=== PATIENT | female | born 1970 | race Asian ===

== ENCOUNTER 2024-03-31 09:04 | Inpatient (IN) | payer BC ==
[~2024-03-31] VITALS: Ht 170.2 cm; Wt 79.4 kg
[2024-03-31 09:30] LABS: *BILIRUBIN,URIN NEGATIVE (NEGATIVE); *BLOOD, URINE NEGATIVE (NEGATIVE); *CLARITY,URINE CLEAR (CLEAR); *COLOR,URINE YELLOW (YELLOW); *KETONES,URINE NEGATIVE (NEGATIVE); *PROTEIN,URINE TRACE (NEGATIVE); *UROBILINOGEN,URINE 0.2 E.U./dl (NORMAL); LEUKOCYTE ESTERASE ,URINE NEGATIVE (NEGATIVE); NITRITE, URINE NEGATIVE (NEGATIVE); PH,URINE 5.5 (5.0-8.0); UGLUCOSE NEGATIVE (NEGATIVE)
[2024-03-31 09:33] LABS: *URINE HCG, QUAL NEGATIVE (NEGATIVE)
[2024-03-31] MEDS ORDERED: LOSA100T31 PO (09:35)
[2024-03-31] MEDS ORDERED: MONT10TA33 PO (09:35)
[2024-03-31] MEDS ORDERED: ONDANSETRON 4 MG/2 ML VIAL ONE (09:43)
[2024-03-31] MEDS ORDERED: HYDROMORPHONE 1 MG/1 ML DISP.SYRIN ONE ×3 (09:43→14:13)
[2024-03-31] MEDS: IV NORMAL SALINE 1000 ML BAG IV ONE (09:49)
[2024-03-31] MEDS: HYDROMORPHONE 1 MG/1 ML DISP.SYRIN IV ONE ×2 (09:50→12:09)
[2024-03-31] MEDS: ONDANSETRON 4 MG/2 ML VIAL IV ONE (09:50)
[2024-03-31 10:05] LABS: BASOPHILS % (AUTO) 0.3 % (0.0-2.0); EOSINOPHILS % (AUTO) 0.3 % (0.0-7.0); HEMATOCRIT 39.8 % (31.2-41.9); HEMOGLOBIN 13.1 g/dL (10.9-14.3); LYMPHOCYTES % (AUTO) 9.4 % (20.5-51.5); MEAN CORPUSCULAR HEMOGLOBIN 28.4 uug (24.7-32.8); MEAN CORPUSCULAR HGB CONC 33 g/dL (32.3-35.6); MEAN CORPUSCULAR VOLUME 86.6 fL (75.5-95.3); MONOCYTES # (AUTO) 0.7 K/uL (0.1-1.30); MONOCYTES % (AUTO) 6.3 % (0.0-11.0); NEUTROPHILS # (AUTO) 8.7 K/uL (1.8-8.9); NEUTROPHILS % (AUTO) 83.7 % (38.5-71.5); PLATELET COUNT (AUTO) 205 K/uL (179-408); RED CELL DISTRIBUTION WIDTH 13.2 % (12.3-17.7); WHITE BLOOD COUNT (AUTO) 10.4 K/uL (3.8-11.8)
[2024-03-31 10:06] LABS: CALCIUM 8.9 mg/dL (8.5-10.1); CREATININE 0.9 mg/dL (0.6-1.3); DIFFERENTIAL COMMENT 1; POTASSIUM 3.8 mmol/L (3.5-5.1)
[2024-03-31 10:12] LABS: ALBUMIN 3.8 g/dL (3.4-5.0); BILIRUBIN,DIRECT 0.1 mg/dL (0.0-0.2); BILIRUBIN,TOTAL 0.5 mg/dL (0.2-1.0); TOTAL PROTEIN, SERUM 7.7 g/dL (6.4-8.2)
--- NOTE | 2024-03-31 11:30 | NUR ---
Pt is resting in [facility] in ER RM5[facility], states she is pain free at this time. Per Dr. Weiss plan to admit to m/s for appendicitis, ER admitting notified. Dr. Weiss spoke with Dr. Gomez (surg on-call) via telephone. Inbox[employer] paged.
[2024-03-31] MEDS ORDERED: METRONIDAZOLE 500 MG/NS 100ML 100 ML IV ONE (11:38)
[2024-03-31] MEDS ORDERED: MEROPENEM 1GM/NS 100ML IVPB **ER PYXIS ONLY IV ONE ×2 (11:38→21:50)
--- NOTE | 2024-03-31 11:40 | NUR ---
Dr. Weiss spoke with the patient/ about plan of care.
--- NOTE | 2024-03-31 11:45 | NUR ---
Per m/s charge nurse "they are maxed out" and can not admit any new patients. Nursing ethylbenzene cracking supervisor is aware.
[2024-03-31] MEDS: METRONIDAZOLE 500 MG/NS 100 ML PIGGYBACK IV ONE (11:53)
[2024-03-31] MEDS: IV NS 1000 ML 1,000 ML IV ONE (12:00)
--- NOTE | 2024-03-31 12:30 | NUR ---
Dr. Weiss spoke with Dr. Olguin via telephone, pt has been accepted for m/s admission. Pt resting at this time with NAD noted, remains at bedside. Pt states her pain is improved (down to 2/10).
[2024-03-31] MEDS: MEROPENEM 1 G in IV NORMAL SALINE 100 ML IV SCH (12:39)
--- NOTE | 2024-03-31 13:06 | NUR ---
Received telephone call from Dr. Gomez, procedure scheduled for 1500 today. Pt consent for Laproscopic Appendectomy Possible Open obtained as requested by Dr. Gomez.
--- NOTE | 2024-03-31 14:00 | NUR ---
Pt oral temp 103.0, Dr. Weiss notified. SBAR report given to pre-op nurse via telephone.
[2024-03-31] MEDS: HYDROMORPHONE 1 MG/1 ML DISP.SYRIN IV PRN (14:12)
--- NOTE | 2024-03-31 14:20 | NUR ---
Pt trans to OR, hands off report given.
[2024-03-31] MEDS ORDERED: FENTANYL CITRATE 250 MCG/5 ML AMPUL ONE (14:40)
[2024-03-31] MEDS ORDERED: VASOPRESSIN 20 UNIT/ML VIAL ONE (14:40)
[2024-03-31] MEDS ORDERED: VALS320T16 PO (15:06)
[2024-03-31 15:19] LABS: BACTERIA,URINE FEW /HPF (NONE SEEN); RBC,URINE NONE SEEN /HPF (0-3); SQUAMOUS EPITHELIAL CELL,UR FEW /HPF (NONE SEEN); URINE AMORPHOUS URATE MANY /HPF; WBC,URINE 0-3 /HPF (0-3)
[2024-03-31] MEDS ORDERED: LIDOCAINE HCL 1% 20 ML VIAL ONE (15:54)
[2024-03-31] MEDS ORDERED: NEOMY/BACITRAC/POLYMI OINT 28.35 GM TUBE ONE (15:54)
[2024-03-31] MEDS ORDERED: BUPIVACAINE/EPI PF 0.25% 10 ML VIAL IJ ONE (15:54)
[2024-03-31] MEDS ORDERED: PROPOFOL 200 MG/20 ML BOTTLE ONE (16:45)
[2024-03-31] MEDS ORDERED: ONDANSETRON 4 MG/2 ML VIAL IV PRN (18:45)
[2024-03-31] MEDS ORDERED: ACETAMINOPHEN 650 MG SUPP.RECT RC PRN (18:45)
[2024-03-31 19:09] VITALS: BP 115/56; TEMP 102.1; O2SAT 99
--- NOTE | 2024-03-31 19:20 | NUR ---
patient is alert, oriented x4, no sob, respirations are even nonlabored, patient is running temp, dr cespedes made aware about patient temp, oncoming nurse martin endorsed accordingly to continue with plan of care.
--- NOTE | 2024-03-31 19:20 | NUR ---
Pt received in bed. Alert, oriented x4. She is in telemetry. Heart rate is sinus rhythm 92.No sob or pain acute reported. IV on L AC noting is running. Last temperature was 100.7. ice pack put. Pt is on ice chips.will start an IV and scheduled meds. Safety will monitored.
[2024-03-31] MEDS: GABAPENTIN 100 MG CAPSULE PO SCH (20:07)
[2024-03-31] MEDS: CELECOXIB 200 MG CAPSULE PO SCH (20:08)
[2024-03-31] MEDS: POTASSIUM CHLORIDE 20 MEQ in IV D5 1/2 NS 1000 ML 1,000 ML IV PRN (21:19)
[2024-03-31 21:57] VITALS: BP 128/61; TEMP 100.7; O2SAT 99
[2024-03-31] MEDS ORDERED: PIPERACILLIN SODIUM/TAZOBACTAM 3.375 G in IV DEXTROSE 5% 50 ML IV SCH (22:00)
[2024-03-31] MEDS: PIPERACILLIN SODIUM/TAZOBACTAM 3.375 G in IV DEXTROSE 5% 100 ML IV SCH (23:54)
[2024-04-01 01:00] VITALS: BP 99/54; TEMP 100.4; O2SAT 94
[2024-04-01] MEDS: ACETAMINOPHEN 325 MG TABLET PO PRN (01:30)
--- NOTE | 2024-04-01 05:19 | NUR ---
[id number] Pauline TRAFFIC ENUMERATOR made rounds and notify her that patient retaining urine, did bladder scan patient and result is more than 300 of urine, straight cath patient obtained 800cc of yellow color urine with slight odor, Pauline has new order UA and to do bladder scan patient every 8 hrs if not voiding, and to insert iqbal if more than 300 cc of urine. MARIAM Cox made aware.
[2024-04-01 05:51] VITALS: BP 98/55; TEMP 99.4; O2SAT 95
--- NOTE | 2024-04-01 07:02 | NUR ---
Pt had a little urine around 50 ml. after 8 hours per COKE CRUSHER OPERATOR order bladder scan was done. it was showing 605. Foely catheter was put. Urine sample was taken. MRSA swab was taken. Pt got all her scheduled meds, tolerated well. No temperature. All needs were attended. upcoming nurse endorsed.
[2024-04-01 07:37] LABS: BASOPHILS % (AUTO) 0.2 % (0.0-2.0); EOSINOPHILS % (AUTO) 0.1 % (0.0-7.0); HEMATOCRIT 33.1 % (31.2-41.9); HEMOGLOBIN 10.9 g/dL (10.9-14.3); LYMPHOCYTES # (AUTO) 1.3 K/uL (0.8-4.8); LYMPHOCYTES % (AUTO) 9.9 % (20.5-51.5); MEAN CORPUSCULAR HEMOGLOBIN 28.5 uug (24.7-32.8); MEAN CORPUSCULAR HGB CONC 33 g/dL (32.3-35.6); MEAN CORPUSCULAR VOLUME 86.5 fL (75.5-95.3); MONOCYTES # (AUTO) 0.9 K/uL (0.1-1.30); MONOCYTES % (AUTO) 6.4 % (0.0-11.0); NEUTROPHILS # (AUTO) 11.2 K/uL (1.8-8.9); NEUTROPHILS % (AUTO) 83.4 % (38.5-71.5); PLATELET COUNT (AUTO) 165 K/uL (179-408); RED BLOOD CELL COUNT(AUTO) 3.82 MIL/uL (3.63-4.92); RED CELL DISTRIBUTION WIDTH 13.8 % (12.3-17.7); WHITE BLOOD COUNT (AUTO) 13.4 K/uL (3.8-11.8)
[2024-04-01 07:38] LABS: ALANINE AMINOTRANSFERASE 18 U/L (14-59); ALBUMIN 2.7 g/dL (3.4-5.0); ALKALINE PHOSPHATASE 50 U/L (50-136); ASPARTATE AMINOTRANSFERASE 26 U/L (15-37); CALCIUM 7.9 mg/dL (8.5-10.1); CARBON DIOXIDE 29 mmol/L (21-32); CHLORIDE 105 mmol/L (98-107); GLUCOSE 127 mg/dL (74-106); NT-PRO BNP 808 pg/mL (0-125); PHOSPHOROUS 2.6 mg/dL (2.5-4.9); POTASSIUM 3.3 mmol/L (3.5-5.1); SODIUM SERUM 140 mmol/L (136-145); TOTAL PROTEIN, SERUM 6.4 g/dL (6.4-8.2); UREA NITROGEN, BLOOD 12 mg/dL (7-18)
--- NOTE | 2024-04-01 08:22 | NUR ---
PT RECEIVED IN BED. ALERT AND ORIENTED X4, WITH NO ACUTE DISTRESS NOTED. CONTINUE ON ROOM AIR. SATURATING BETWEEN 96-98%. DENIED SOB, COUGHING AND ABDOMINAL PAIN. ABDOMINAL INCISION INTACT. LEFT AC IV INTACT, PATENT AND FLUSHING WELL. . CALL LIGHT WITHIN REACH, BED AT ITS LOWEST POSITION, LOCKED AND ALARM ON. WILL CONTINUE TO MONITOR.
[2024-04-01 09:26] LABS: THYROID STIMULATING HORMONE 0.508 mIU/mL (0.358-3.740)
[2024-04-01] MEDS: PANTOPRAZOLE SODIUM 40 MG VIAL IV SCH (09:27)
[2024-04-01 11:54] VITALS: BP 96/54; TEMP 97.7; O2SAT 98
[2024-04-01] MEDS: POTASSIUM CHLORIDE 20 MEQ TAB.PRT.SR PO ONE (12:46)
[2024-04-01] MEDS: MAGNESIUM SULFATE/D5W 100 ML IV SCH (12:47)
[2024-04-01] MEDS: NEUTRA PHOS PACKET PO ONE (12:47)
[2024-04-01] MEDS ORDERED: SERT100T PO (13:18)
[2024-04-01] MEDS ORDERED: BUPR-96 PO (13:19)
[2024-04-01] MEDS ORDERED: GUAN4TAB2 PO (13:20)
[2024-04-01] MEDS ORDERED: ALBUTEROL SULFATE 2.5 MG/ 0.5 ML NEBU NEB PRN (15:30)
[2024-04-01] MEDS ORDERED: TEMAZEPAM 15 MG CAPSULE PO PRN (15:45)
[2024-04-01 16:06] VITALS: BP 141/80; TEMP 98.3; O2SAT 97
[2024-04-01 16:15] VITALS: O2SAT 97
[2024-04-01] MEDS: MORPHINE SULFATE 2 MG/1 ML DISP.SYRIN IV PRN (17:47)
[2024-04-01] MEDS: REMDESIVIR (CHARGED) 200 MG in IV NORMAL SALINE 210 ML IV ONE (17:51)
[2024-04-01] MEDS: DEXAMETHASONE 4 MG TABLET PO SCH (17:52)
--- NOTE | 2024-04-01 19:21 | NUR ---
PT RECEIVED IN BED. ALERT AND ORIENTED X4, WITH NO ACUTE DISTRESS NOTED. CONTINUE ON ROOM AIR. SATURATING BETWEEN 96-98%. DENIED SOB, COUGHING AND ABDOMINAL PAIN. ABDOMINAL INCISION INTACT. LEFT AC IV INTACT, PATENT AND FLUSHING WELL. . CALL LIGHT WITHIN REACH, BED AT ITS LOWEST POSITION, LOCKED AND ALARM ON. WILL CONTINUE TO MONITOR. Addendum: 04/01/24 at 1928 by LIEN DYKES RN PATIENT IN BED. ALERT AND ORIENTED X4, WITH NO ACUTE DISTRESS NOTED. CONTINUE ON ROOM AIR. SATURATING BETWEEN 96-98%. DENIED SOB, COUGHING. MORPHINE GIVEN FOR ABDOMINAL PAIN. ABDOMINAL INCISION INTACT. LEFT AC IV INTACT, PATENT AND FLUSHING WELL. STARTED ON REMDESIVIR IV AND DECADRON FOR COVID 19. CALL LIGHT WITHIN REACH, BED AT ITS LOWEST POSITION, LOCKED AND ALARM ON. WILL CONTINUE TO MONITOR.
[2024-04-01 20:42] VITALS: BP 122/77; TEMP 100.4; O2SAT 96
[2024-04-01] MEDS: ENOXAPARIN SODIUM 40 MG/0.4 ML DISP.SYRIN SQ SCH (21:31)
[2024-04-01] MEDS: MIRALAX 17 GM POWD.PACK PO PRN (22:53)
[2024-04-02 00:39] VITALS: BP 147/86; TEMP 99; O2SAT 94
[2024-04-02 03:49] VITALS: O2SAT 98
[2024-04-02] MEDS: PANTOPRAZOLE SODIUM 40 MG TABLET.DR PO SCH (06:11)
[2024-04-02 06:13] VITALS: BP 130/70; TEMP 97.7; O2SAT 99
[2024-04-02 07:05] LABS: HEMATOCRIT 34.5 % (31.2-41.9); HEMOGLOBIN 11.2 g/dL (10.9-14.3); LYMPHOCYTES # (AUTO) 0.8 K/uL (0.8-4.8); LYMPHOCYTES % (AUTO) 5.8 % (20.5-51.5); MEAN CORPUSCULAR HEMOGLOBIN 27.9 uug (24.7-32.8); MEAN CORPUSCULAR HGB CONC 32 g/dL (32.3-35.6); MONOCYTES # (AUTO) 0.6 K/uL (0.1-1.30); NEUTROPHILS # (AUTO) 12.8 K/uL (1.8-8.9); NEUTROPHILS % (AUTO) 90.2 % (38.5-71.5); PLATELET COUNT (AUTO) 169 K/uL (179-408); RED BLOOD CELL COUNT(AUTO) 4.01 MIL/uL (3.63-4.92); RED CELL DISTRIBUTION WIDTH 13.8 % (12.3-17.7); WHITE BLOOD COUNT (AUTO) 14.2 K/uL (3.8-11.8)
[2024-04-02 07:12] LABS: DIFFERENTIAL COMMENT 1
[2024-04-02 07:40] LABS: ALBUMIN 2.7 g/dL (3.4-5.0); BILIRUBIN,DIRECT 0.1 mg/dL (0.0-0.2); BILIRUBIN,TOTAL 0.6 mg/dL (0.2-1.0); CALCIUM 8.4 mg/dL (8.5-10.1); CREATININE 0.7 mg/dL (0.6-1.3); MAGNESIUM 2.4 mg/dL (1.8-2.4); PHOSPHOROUS 1.9 mg/dL (2.5-4.9); TOTAL PROTEIN, SERUM 6.9 g/dL (6.4-8.2)
[2024-04-02 08:00] VITALS: BP 147/88; TEMP 97.9; O2SAT 97
--- NOTE | 2024-04-02 08:30 | NUR ---
PT AWAKE, ALERT, ORIENTED X 4. SHE IS ON NC 2L AND STATES THAT IF SHE MOVES AROUND THE ROOM WITHOUT NASAL CANULA, SHE DESATURATES TO 88% AND SOB. PT STATED SHE IS PASSING GAS BUT NO BM YET. PT ASKED PRN FOR CONSTIPATION AND TO ASK TO REMOVE YANEZ. WILL FOLLOW UP AND MONITOR PT.
[2024-04-02] MEDS: buPROPion XL 150 MG TAB.SR.24H PO SCH (08:34)
[2024-04-02] MEDS: POTASSIUM CHLORIDE 20 MEQ in IV NS 1000 ML 1,000 ML IV PRN (08:34)
--- NOTE | 2024-04-02 12:30 | NUR ---
PT AWAKE, ALERT, ORIENTED X 4. ON NC 2L O2 SAT 97%. PT STATED THAT SHE HAD 2 BM AFTER MIRALAX. BEAU REMOVED PER DR. BUSTAMANTE. WILL MONITOR PT. DR. PAREDES SAW PT AND ORDERED NEUTRO- PHOS AND TO ADVANCE DIET TO REGULAR.
[2024-04-02] MEDS: NEUTRA PHOS PACKET PO ONE (13:36)
[2024-04-02 14:32] LABS: *OCCULT BLOOD STOOL NEGATIVE (NEGATIVE)
--- NOTE | 2024-04-02 15:00 | NUR ---
PT ASKED FOR CREAM FOR BUTTOCK REDNESS FROM BM. SHE SAID SHE "ALREADY HAD 8 BMS". PT TOLERATING REGULAR DIET WELL. PT AMBULATORY AND INDEPENDENT TO GO TO THE BATHROOM. ALL SAFETY MEASURES MAINTAINED. PT KEPT CLEAN AND DRY. POST-OP SITE LOOKS CLEAN AND DRESSING INTACT. NO REDNESS, DRAINAGE, OR SWELLING NOTED. PT C/O "ROOM TOO HOT" AND GEAR GENERATOR SET UP OPERATOR NOTIFIED AND ADJUSTED PT'S THERMOSTAT AND SHE REPORTED BETTER COMFORT. WILL CONTINUE TO MONITOR.
--- NOTE | 2024-04-02 15:32 | NUR ---
PT STATED THAT SHE VOIDED "SEVERAL TIMES" SINCE YANEZ WAS REMOVED. NO C/O PAIN, NO SOB ON NC 2L.
[2024-04-02] MEDS: VITAMINS A AND D OINT 42 GM TUBE TP PRN (15:43)
[2024-04-02] MEDS: REMEDY ESSENTIAL ZINC PASTE 113 GM TOP PRN (15:43)
[2024-04-02] MEDS: REMDESIVIR (CHARGED) 100 MG in IV NORMAL SALINE 100 ML IV SCH (17:45)
[2024-04-02 19:00] VITALS: BP 160/100; TEMP 100.5; O2SAT 96
--- NOTE | 2024-04-02 22:00 | NUR ---
pt sbp 160/100, offered prn med , but turned it down
[2024-04-02] MEDS: MONTELUKAST SODIUM 10 MG TABLET PO SCH (22:05)
[2024-04-03] VITALS (9 sets, daily range): BP systolic 130–162; BP diastolic 71–97; TEMP 98.4–99.6; O2SAT 94–98
--- NOTE | 2024-04-03 01:30 | NUR ---
report given to moshe seaman
[2024-04-03 06:56] LABS: BASOPHILS % (AUTO) 0.1 % (0.0-2.0); HEMATOCRIT 33.3 % (31.2-41.9); HEMOGLOBIN 10.9 g/dL (10.9-14.3); LYMPHOCYTES # (AUTO) 1.5 K/uL (0.8-4.8); LYMPHOCYTES % (AUTO) 8.4 % (20.5-51.5); MEAN CORPUSCULAR HEMOGLOBIN 27.9 uug (24.7-32.8); MEAN CORPUSCULAR HGB CONC 33 g/dL (32.3-35.6); MEAN CORPUSCULAR VOLUME 85.4 fL (75.5-95.3); MONOCYTES # (AUTO) 1.2 K/uL (0.1-1.30); MONOCYTES % (AUTO) 6.7 % (0.0-11.0); NEUTROPHILS # (AUTO) 15.4 K/uL (1.8-8.9); NEUTROPHILS % (AUTO) 84.8 % (38.5-71.5); PLATELET COUNT (AUTO) 207 K/uL (179-408); RED CELL DISTRIBUTION WIDTH 13.5 % (12.3-17.7); WHITE BLOOD COUNT (AUTO) 18.2 K/uL (3.8-11.8)
[2024-04-03 07:01] LABS: DIFFERENTIAL COMMENT 1
[2024-04-03 07:46] LABS: ALBUMIN 2.6 g/dL (3.4-5.0); BILIRUBIN,DIRECT 0.1 mg/dL (0.0-0.2); BILIRUBIN,TOTAL 0.4 mg/dL (0.2-1.0); CALCIUM 8.5 mg/dL (8.5-10.1); CREATININE 0.6 mg/dL (0.6-1.3); PHOSPHOROUS 2.2 mg/dL (2.5-4.9); POTASSIUM 3.6 mmol/L (3.5-5.1); TOTAL PROTEIN, SERUM 6.6 g/dL (6.4-8.2)
--- NOTE | 2024-04-03 08:00 | NUR ---
RECEIVED PATIENT AWAKE ALERT AND ORIENTED X3, DENIES PAIN OR SOB, ON AND OFF COUGH MILDLY PRODUCTIVE. O2 2L NC SATURATING 97%
--- NOTE | 2024-04-03 08:46 | NUR ---
MEDICATED WITH TYLENOL FOR MILD GENERALIZED DISCOMFORT. WILL OBSERVED
--- NOTE | 2024-04-03 12:37 | NUR ---
CONTINUE IV ANTIBIOTIC ORDERED, REINFORCED AMBULATION TOLERATED SEEN BY DR MATIAS REPLACED PHOS OF 2.2
[2024-04-03] MEDS: NEUTRA PHOS PACKET PO ONE (14:25)
--- NOTE | 2024-04-03 19:30 | NUR ---
Received patient lying in bed. AAOX4. In no acute distress. Denies any pain or SOB. Ask to have IV dressing redress and done. IV site on left hand and wrist intact and patent. SR with RBBB on tele, HR of 86/min. Dressing on abd. area dry clean and intact. COVID precaution observed. Needs attended to and met. Safety measure initiated and call light within reached.
[2024-04-03] MEDS: ENALAPRILAT DIHYDRATE 1.25 MG/1 ML VIAL IV PRN (20:38)
[2024-04-04 04:27] VITALS: BP 168/92; TEMP 98; O2SAT 98
--- NOTE | 2024-04-04 05:08 | NUR ---
Patient had an episode of SVT for 9 sec at 0429. MT also informed this nurse that patient had SVT episode during day shift yesterday for 6 sec at 1832. Informed SALES VICE PRESIDENT Rebolledo with order for Cardiac consult, EKG and Troponin in AM. All order noted and carried out.
--- NOTE | 2024-04-04 05:35 | NUR ---
SR with RBBB on tele, HR of 67/min at this time. Denies any pain or SOB. COVID precaution maintained. Other needs attended to and met. Safety measure maintained and call light within reached.
[2024-04-04 06:00] VITALS: BP 147/87; TEMP 98.5; O2SAT 97
[2024-04-04 06:47] LABS: BASOPHILS % (AUTO) 0.1 % (0.0-2.0); EOSINOPHILS % (AUTO) 0.1 % (0.0-7.0); HEMOGLOBIN 11.1 g/dL (10.9-14.3); LYMPHOCYTES # (AUTO) 1.6 K/uL (0.8-4.8); LYMPHOCYTES % (AUTO) 12.6 % (20.5-51.5); MEAN CORPUSCULAR HEMOGLOBIN 27.9 uug (24.7-32.8); MEAN CORPUSCULAR HGB CONC 33 g/dL (32.3-35.6); MEAN CORPUSCULAR VOLUME 85.6 fL (75.5-95.3); MONOCYTES # (AUTO) 1.5 K/uL (0.1-1.30); MONOCYTES % (AUTO) 11.1 % (0.0-11.0); NEUTROPHILS % (AUTO) 76.1 % (38.5-71.5); PLATELET COUNT (AUTO) 249 K/uL (179-408); RED BLOOD CELL COUNT(AUTO) 3.97 MIL/uL (3.63-4.92); RED CELL DISTRIBUTION WIDTH 13.6 % (12.3-17.7); WHITE BLOOD COUNT (AUTO) 13.1 K/uL (3.8-11.8)
[2024-04-04 06:58] LABS: DIFFERENTIAL COMMENT 1
[2024-04-04 07:05] LABS: ALBUMIN 2.8 g/dL (3.4-5.0); BILIRUBIN,DIRECT 0.1 mg/dL (0.0-0.2); BILIRUBIN,TOTAL 0.3 mg/dL (0.2-1.0); CALCIUM 8.7 mg/dL (8.5-10.1); CREATININE 0.6 mg/dL (0.6-1.3); PHOSPHOROUS 3.1 mg/dL (2.5-4.9); POTASSIUM 3.2 mmol/L (3.5-5.1); TOTAL PROTEIN, SERUM 6.9 g/dL (6.4-8.2)
[2024-04-04 08:00] VITALS: BP 120/78; TEMP 98.4; O2SAT 98
[2024-04-04] MEDS ORDERED: DEXAMETHASONE 4 MG TABLET PO SCH (09:00)
[2024-04-04] MEDS ORDERED: POTASSIUM CHLORIDE 20 MEQ TAB.PRT.SR PO ONE (11:00)
--- NOTE | 2024-04-04 11:08 | NUR ---
SPOKE TO REYES, AGREED WITH DISCHARGE THE PT TO CALL TO MAKE AN APPOINTMENT IN A WEEK,
--- NOTE | 2024-04-04 11:24 | NUR ---
PT DENIES PAIN OR DISCOMFORT AT THIS TIME NO DISTRESS NOTED, PT'S EDUCATION WAS PROVIDED, PT VERBALIZED UNDERSTANDING, PT WAS DISCHARGED HOME ACCOMPANIED WITH HER .
[2024-04-04 21:40] LABS: LYMPHOCYTES % (MANUAL) 12 % (20-40); MONOCYTES % (MANUAL) 9 % (2-10); MYELOCYTES % 1 % (0-0); NEUTROPHILS % (MANUAL) 78 % (42-75)
[2024-04-04 21:41] LABS: ANISOCYTOSIS 2+; PLATELET ESTIMATE ADEQUATE
[2024-04-04 21:42] LABS: OVALOCYTES OCC
== END 2024-04-04 11:20 | disposition home or self-care (01) | DRG 853 ==
LOC: ER 09:07 → TRANSITION 13:47 → TELE3 18:15
PROVIDERS: ADMIT Internal Medicine; ATTEND Internal Medicine
PROC: 0DTJ4ZZ Resection of Appendix, Percutaneous Endoscopic Approach (ICD-10-PCS; principal; 2024-03-31)
PROC: XW033E5 Introduction of Remdesivir Anti-infective into Peripheral Vein, Percutaneous Approach, New Technology Group 5 (ICD-10-PCS; 2024-04-01)
DX: A41.9 Sepsis, unspecified organism (principal); J12.82 Pneumonia due to coronavirus disease 2019; K35.32 Acute appendicitis with perforation, localized peritonitis, and gangrene, without abscess; U07.1 COVID-19; E44.1 Mild protein-calorie malnutrition; Z68.27 Body mass index [BMI] 27.0-27.9, adult; E66.9 Obesity, unspecified; Z87.440 Personal history of urinary (tract) infections; I10 Essential (primary) hypertension; R73.9 Hyperglycemia, unspecified; F32.A Depression, unspecified; R09.02 Hypoxemia; J45.909 Unspecified asthma, uncomplicated; I45.10 Unspecified right bundle-branch block; Z79.899 Other long term (current) drug therapy
CPT/HCPCS: 36415; 70030-TC; 71045; 83550; 83735; 84100; 84443; 84484; 84703; 85025; 85610; 85730; 86140; 87040; 93005; A4606; A4649; A4663; G0378; J0248; J0690; J1100; J1170; J1650; J1885; J2185; J2270; J2405; J2470; J2543; J2765; J3010; J3475; J3480; J3490; J7040; J8540; L8699